=== PATIENT | female | born 1980 | race Caucasian/White ===

== ENCOUNTER 2022-04-02 06:54 | Outpatient (CLI) | payer OTHER, BC, SELFPAY ==
[2022-04-02 07:33] LABS: Anion Gap 6 mmol/L (8-16); Blood Urea Nitrogen 13 mg/dL (7-17); Carbon Dioxide 27 mmol/L (22-30); Chloride 107 mmol/L (98-107); Cholesterol 213 mg/dL (0-200); Estimated Glomerular Filt Rate > 60; Glucose 86 mg/dL (65-110); HDL Direct 57 mg/dL; Sodium 140 mmol/L (137-145); Triglycerides 148 mg/dL (<150)
[2022-04-02 07:43] LABS: Basophils Absolute Auto 0.1 K/mm3 (0.0-0.1); Basophils Percent Auto 1.1 % (0.2-1.2); Eosinophils Absolute Auto 0.5 K/mm3 (0-0.3); Eosinophils Percent Auto 8.4 % (0-4.4); Hematocrit 40.9 % (37.0-47.0); Hemoglobin 13.5 g/dL (12.0-15.0); Immature Granulocyte Absolute 0.01 K/mm3 (0.00-0.031); Immature Granulocyte Percent A 0.2 % (0-0.5); Lymphocytes Absolute Auto 1.43 K/mm3 (0.9-3.2); Lymphocytes Percent Auto 23.5 % (18.3-44.2); Mean Corpuscular Volume 96.9 fl (80-100); Mean Platelet Volume 9.8 fl (7.4-10.4); Monocytes Absolute Auto 0.8 K/mm3 (0.1-0.6); Monocytes Percent Auto 13.3 % (2.6-8.5); Neutrophils Absolute Auto 3.3 K/mm3 (1.3-6.7); Neutrophils Percent Auto 53.5 % (45.5-73.1); Platelet Count Result 219 k/mm3 (150-375); Red Blood Count 4.22 M/mm3 (4.2-5.4); Red Cell Distribution Width 12.3 % (11.5-14.5); White Blood Count 6.1 K/mm3 (4.5-10.0)
[2022-04-02 07:44] LABS: LDL Cholesterol Direct 112 mg/dL
[2022-04-02 08:15] LABS: Thyroid Stimulating Hormone Reflex 0.717 uIU/mL (0.465-4.68)
== END 2022-04-02 06:55 | disposition home or self-care (01) ==
PROVIDERS: PCP Family Medicine; Visit Provider Family Medicine
DX: Z13.29 Encounter for screening for other suspected endocrine disorder (principal); Z13.0 Encounter for screening for diseases of the blood and blood-forming organs and certain disorders involving the immune mechanism; Z13.1 Encounter for screening for diabetes mellitus; Z13.220 Encounter for screening for lipoid disorders
CPT/HCPCS: 36415; 80048; 80061; 84436; 84443; 85025

== ENCOUNTER 2022-08-17 14:52 | Outpatient (CLI) | payer OTHER, BC, SELFPAY | END 2022-08-17 14:53 | disposition home or self-care (01) | PROVIDERS: PCP Family Medicine; Visit Provider Obstetrics & Gynecology | DX: C50.919 Malignant neoplasm of unspecified site of unspecified female breast (principal); Z01.818 Encounter for other preprocedural examination | CPT/HCPCS: 36415; 86850; 86900; 86901 ==

== ENCOUNTER 2022-08-29 00:54 | Day surgery (SDC) | payer OTHER, BC, SELFPAY ==
--- NOTE | 2022-08-16 14:46 | SUR.PREOP ---
Report to the Outpatient Waiting Room, entrance under the green pavilion located off [facility], at time 1000 on date 08/29/22. Planned Procedure Time: 1200. Time changes happen often and if your time is changed the preop area will call you the afternoon before. - You and your visitor will be asked to self-screen and do not enter if you have any COVID symptoms. - Only one visitor is requested with a max of two and NO children visitors are allowed at this time. - The patient visitor may be requested to leave or wait in car when not with patient due to distancing restrictions. - A mask is optional within the hospital at this time. Patients may have clear liquids (water, carbonated beverages, clear teas, apple juice) until 3 hours prior to surgery with a maximum of 20 ounces. - No food from midnight until time of surgery - Infants may have breast milk until 4 hours before surgery, infant formula 6 hours prior to surgery. - Children will be allowed to drink immediately following surgery. If applicable, please bring a bottle or sippy cup to assist with drinking. Juice, water, soda, and popsicles are readily available. For infants on formula, please bring formula the day of surgery. Pacifiers are allowed. Take the following medications with a SIP of water the morning of surgery: NONE DO NOT STOP ANY OF YOUR OTHER PRESCRIPTION MEDICATIONS PRIOR TO SURGERY ?EXCEPT THE FOLLOWING Medications to discontinue per physician MULTIVITAMIN Date to take last dose 08/26/22 Please no make-up, nail arabic, hairspray, perfume, deodorant, or body powder the day of surgery. No jewelry (including any body piercings) or valuables the day of surgery, leave them at home. Please take a shower or bath the night before, or the morning of, surgery with an antibacterial soap. Wear comfortable, loose fitting clothing. Children are encouraged to wear pajamas. - Jewelry must be removed prior to entering the operating room. Rings and piercings that are not removed may be cut off. - The hospital will not accept responsibility for valuables. - Please leave all valuables, including medications, at home the day of surgery. If you are going home after surgery, a licensed pile driver must drive you home. - NO public transportation without another adult if you receive anesthesia. - We recommend that an adult stay with you for 24 hours following discharge. - We also recommend that you do not drive, make important decision, drink alcoholic beverages, or take any drugs that were not prescribed by your health care provider for at least 24 hours after your discharge time. For Pediatric surgeries, we recommend two adults accompany the child home. Follow any additional instructions given to you from your surgeon. If you or anyone in your household have experienced Covid symptoms in the past week, please notify your surgeon or the nurse liaison at the phone number below for possible testing. Telephone instructions given to ARTIE BORGES and asked if any additional questions and then verbalized understanding. Patient advised to call surgeon office or pre surgery nurse liaison [phone] if any additional questions.
[2022-08-16 15:10] VITALS: BMI 24.3
[2022-08-29] VITALS (14 sets, daily range): BP systolic 75–129; BP diastolic 49–99; PULSE 59–81; RESP 10–18; TEMP 37.1; O2SAT 100
--- NOTE | 2022-08-29 00:13 | PM.IMHP ---
H&P: HPI History of Present Illness Date/Time: 08/29/22 00:13 Chief Complaint: Here to have ovaries removed. Narrative: 42 y/o with a new diagnosis of grade 1, stage 1A invasive ductal carcinoma of the right breast. It is ER+/VA+/HER-. She gonzalez shad bilateral mastectomies with lymph node samplings. Lymph nodes were negative. She has been offered gonadoptropin suppression therapy vs. oophorectomy. She is BRCA negative. After a long discussion, she is interested in surgical management. Review of Systems Review of Systems: All systems reviewed & are unremarkable except as noted in HPI and below PMFSH Past Medical History Medical History Breast cancer Surgical History Surgical History History of bilateral mastectomy History of delivery History of reconstruction of both breasts Family History Family History Other Breast cancer Hypertension Social History Social History Smoking status: Never smoker Substance use: never Living arrangements: with family Spiritual care concerns: No Meds Home Medications and Allergies Home Medications Medication Instructions Recorded Confirmed Type cetirizine 10 mg tablet (Zyrtec) 10 mg PO DAILY 08/16/22 08/16/22 History fluticasone propionate 50 1 spray intranasal DAILY 08/16/22 08/16/22 History mcg/actuation nasal spray,suspension multivitamin 1 tablet PO DAILY 08/16/22 08/16/22 History olopatadine 0.2 % eye drops 1 drp EACH EYE DAILY 08/16/22 08/16/22 History anastrozole 1 mg tablet 1 mg PO DAILY 08/17/22 08/17/22 History Allergies Allergy/AdvReac Type Severity Reaction Status Date / Time No Known Allergies Allergy Unknown Unverified 08/16/22 14:53 Exam Const: Orientation/consciousness: patient oriented x3 Other: Well-developed, well-nourished female in no acute distress. Neck: Thyroid: thyroid normal Lymphatic: no lymphadenopathy noted (in neck, axilla or inguinal nodes) Resp: Effort & Inspection: normal respiratory effort Auscultation: clear to auscultation bilaterally Cardio: Rate: regular rate Rhythm: regular rhythm Heart sounds: S1 normal heart sound present and S2 normal heart sound present GI: Other: ABD: Soft, nontender, nondistended. No guarding or rebound tenderness. No hepatosplenomegaly. : General: Yes no CVA tenderness Other: External genitalia: normal female hair distribution, without lesion. Urethral meatus: no lesion, non prolapsed. Bladder: no mass, nontender Vagina: well-estrogenized, without lesion or discharge. No cystocele or rectocele. Cervix: no lesion or discharge. Uterus: small, anteverted, freely mobile, nontender Adnexa: no mass or tenderness. Anus/perineum: no lesions, nontender Back/Spine/Pelvis: Back: no CVA tenderness Skin: General skin exam: normal color and no rashes or lesions noted Neuro: General: patient oriented x3 Extrem: Other: Extremities: nontender with no edema Psych: Mental Status: mental status grossly normal Affect: normal affect Assessment and Plan Assessment and plan (1) Breast cancer: Code(s): C50.919 - Malignant neoplasm of unspecified site of unspecified female breast Status: Chronic Assessment and Plan: A: Invasive ductal carcinoma of the right breast, ER+/VA+. Ovarian suppression vs. removal suggested. P: We reviewed medical vs. surgical approaches, with risks and benefits. Specifically, I have offered laparoscopic bilateral salpingo-oophorectomies. She understands risks of surgery to include risks of anesthesia, risks of pain, infection, bleeding, blood products, thromboembolic phenomena and damage to adjacent structures such as bowel, bladder, ureters, blood vessels and nerves. She understands she may experie
[2022-08-29] MEDS: LACTATED RINGERS 1,000 ML 30 ML IV CONT (10:35)
[2022-08-29] MEDS: KETOROLAC 15 MG/ML VIAL (*BKC) IV PUSH (10:39)
[2022-08-29] MEDS: ACETAMINOPHEN 500 MG TABLET 1000 MG PO (10:39)
--- NOTE | 2022-08-29 11:09 | P.PNAN_ITS ---
Anes - Initial Pre Proc Eval Procedure: Operation Date: 08/29/22 12:00 Proposed Procedures p Laparoscopic Bilateral Salpingo-oophorectomy - Antoine Meyers MD Date/Time: 08/29/22 11:09 Surgeon: Antoine Meyers MD Pre Op Diagnosis: Hx of Breast Cancer Patient Data Age: 42 Gender: F Height: 1.68 m Weight: 68.2 kg Last Vital Signs Temp 37.1 C 08/29/22 10:15 Pulse 68 08/29/22 10:15 Resp 18 08/29/22 10:15 BP 129/79 08/29/22 10:15 Pulse Ox 100 08/29/22 10:15 O2 Del Method Room Air 08/29/22 10:15 Allergies Allergy/AdvReac Type Severity Reaction Status Date / Time No Known Allergies Allergy Unknown Unverified 08/29/22 10:49 Home Medications Medication Instructions Recorded Confirmed Type cetirizine 10 mg tablet (Zyrtec) 10 mg PO DAILY 08/16/22 08/29/22 History fluticasone propionate 50 1 spray intranasal DAILY 08/16/22 08/29/22 History mcg/actuation nasal spray,suspension multivitamin 1 tablet PO DAILY 08/16/22 08/29/22 History olopatadine 0.2 % eye drops 1 drp EACH EYE DAILY 08/16/22 08/29/22 History anastrozole 1 mg tablet 1 mg PO DAILY 08/17/22 08/29/22 History Patient hx anesthesia problems: none Family hx anesthesia problems: none Results Review: All pre-operative results and documents have been reviewed as part of the pre- operative evaluation. [facility] Past Medical History Medical History Breast cancer Surgical History Surgical History History of bilateral mastectomy History of delivery History of reconstruction of both breasts Family History Family History Other Breast cancer Hypertension Social History Social History Smoking status: Never smoker Substance use: never Living arrangements: with family Spiritual care concerns: No Anes - Eval Final PreProcedure Day of Procedure 08/29/22 11:09 Patient weight: normal Heart: regular rate and rhythm Lungs: clear to auscultation Airway: Mallampati scale class II Neurological: alert and oriented Last oral intake: >/= 8 hours ASA classification: III Emergent: no Anesthetic plan: proceed Anesthesia type and monitoring: general ETT and standard monitoring Results Review: All pre-operative results and documents have been reviewed as part of the pre- operative evaluation. Informed Consent: The patient's anesthetic plan and its attendant risks and benefits were discussed with the patient/family/POA. Questions were solicited and answers provided to the satisfaction of the patient/family/POA.
--- NOTE | 2022-08-29 12:25 | WPDHPUPDATE1 ---
History and Physical Update Update Date/Time: 08/29/22 12:25 History and Physical has been reviewed, including an updated exam of the patient. There are NO changes in the patient's condition. Risks, benefits, and alternatives have been discussed and questions answered. Patient agrees to proceed with procedure.
--- NOTE | 2022-08-29 14:09 | P.OP_ITS ---
Procedure Note - Detailed Date of Procedure 08/29/22 Pre-op Diagnosis Hx of Breast Cancer Post-op Diagnosis Same Procedure Performed Laparoscopic bilateral salpingooophorectomy Surgeon Antoine Meyers MD Anesthesia General Findings There was a small, simple-appearing cyst on left ovary. A second small cyst nancy eared to be associated with the left Fallopian tube. Right tube and ovary unremarkable. 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 Filmy adhesions between the omentum and the anterior abominal wall. Liver, gallbladder, vermiform appendix all normal- appearing. Anterior and posterior cul-de-sac normal-appearing. Bilateral round and uterosacral ligaments unremarkable. Bilateral uterers seen. Description of Procedure The patient was taken to the operating room where general endotracheal anesthesia was administered. She was prepared and draped in the usual sterile fashion in the dorsal lithotomy position. The bladder was drained with a red rubber catheter. A sterile speculum was inserted into the vagina and the anterior lip of the cervix was grasped with a single-toothed tenaculum. The acorn uterine manipulator was placed. The speculum was withdrawn. Gloves were changed and attention was turned to the abdomen. An infraumbilical skin incision was made with a scalpel. The abdomen was tented and a 5 millimeter bladeless trocar trocar was advanced under direct laparoscopic visualization. Pneumoperitoneum was administered using carbon dioxide gas. A survey of the pelvis and abdomen yielded the findings noted above. An 11 mm port was placed in the left lower quadrant, and another 5 mm port in the right lower quadrant, both using bladeless trocars under direct laparoscopic visualization. The filmy adhesions between the omentum and the anterior abdominal wall were gently, bluntly lysed. The ureters were visualized bilaterally. The right adnexa was elevated and the Ligasure was used to ligate and transect the infundibulopelvic ligament, followed by the uteroovarian ligament. The left adnexa was similarly excised. An endobag was advanced and the specimens were withdrawn. The pelvis was irrigated with warmed normal saline, and the pedicles were hemostatic. The Domingo cone was used to reapproximate the fascial incision in the left lower quadrant using a single interrupted suture of 0-vicryl. The trocars were withdrawn and the gas was allowed to escape. The skin incisions were reapproximated using 4-0 Vicryl in interrupted subcuticular fashion. Dermaflex was applied externally. The vaginal instrumentation was withdrawn and hemostasis was excellent here as well. Sponge, lap, needle and instrument counts were correct. The patient was awakened and taken to recovery in stable condition. I was present and scrubbed through the entire procedure. Implants None Estimated Blood Loss 5 Drains No Packing No Pathology Yes (Bilateral Fallopian tubes and ovaries sent to pathology.) Complications None Condition Stable Disposition PACU
[2022-08-29] MEDS: oxyCODONE HCL (*CRX) 5 MG TAB IR PO (15:56)
--- NOTE | 2022-08-29 17:30 | SUR.PHASEII ---
1645- Attempted to review discharge instructions with patient. Patient attempted to stand and take a few steps around the room. Once patient sat back down in recliner patient felt very clammy and woozy. BP taken in EMR. 1720- Orthostatic vital signs taken and stable. Patient feeling better. Ambulated around outpatient surgery room without issue. Dr. Meyers notified of previous episode of low BP and feeling near syncopal. Dr. Meyers stated it was okay to discharge patient at this time. 1730- Patient dressed without difficulty or feeling near syncopal. IV removed. Discharge instructions reviewed with patient and .
== END 2022-08-29 17:50 | disposition home or self-care (01) ==
PROVIDERS: PCP Family Medicine; Visit Provider Obstetrics & Gynecology
PROC: (CPT 49320; principal; 2022-08-29 12:00)
DX: Z40.02 Encounter for prophylactic removal of ovary(s) (principal); D25.2 Subserosal leiomyoma of uterus; N73.6 Female pelvic peritoneal adhesions (postinfective); N83.8 Other noninflammatory disorders of ovary, fallopian tube and broad ligament; N83.202 Unspecified ovarian cyst, left side; Z85.3 Personal history of malignant neoplasm of breast; Z90.13 Acquired absence of bilateral breasts and nipples; Z79.811 Long term (current) use of aromatase inhibitors
CPT/HCPCS: 58661; 36415; 86850; 86900; 86901; 88305; A9270; J0330; J1100; J1885; J2250; J2405; J2704; J3010; J7120

== ENCOUNTER 2024-11-18 06:52 | Outpatient (CLI) | payer OTHER, SELFPAY ==
--- OUTSIDE RECORDS SUMMARY | 2024-11-18 06:56 | XMS_ITS | Encounter Summary ---
Author Organization [facility] Care Team Providers Care Tool And Die Technician Name Role Phone Nayan Alvarenga MD Primary Care Provid er Unknown, Notinfile Primary Care Provider Unavail able Nayan Alvarenga MD Primary Care Provid er Unknown, Notinfile Primary Care Provider Unavail able Unknown, Notinfile Primary Care Provider Unavail able Nayan Alvarenga MD Primary Care Provid er Encounter Details Date Type Department Care Team (Latest Contact Info) Description 09/26/2015 Orders Only [facility] ProviderTonya MD [address] [place] [id number] Social History Tobacco Use Types Packs/Day Years Used Date Smoking Tobacco: Never Comments Unknown Sex and Gender Information Value Date Recorded Sex Assigned at Not on file Legal Sex Female 7:27 AM VETERINARIAN POULTRY Gender Identity Not on file Sexual Orientation Not on file documented as of this encounter Plan of Treatment Not on file documented as of this encounter Procedures Procedure Name Priority Date/Time Associated Diagnosis Comments SCAN - LABS 09/26/2015 12:00 AM VETERINARIAN POULTRY documented in this encounter Results * SCAN - LABS (09/26/2015 12:00 AM VETERINARIAN POULTRY) Narrative 09/26/2015 12:00 AM VETERINARIAN POULTRY Ordered by an unspecified provider. Historical Provider Final Res ult documented in this encounter Visit Diagnoses Not on filedocumented in this encounter Care Teams Tool And Die Technician Relationship Specialty Start Date End Date Nayan Alvarenga MD [address] [place] [address] PCP - General 08/15/17 09/01/17 Unknown, Notinfile PCP - General 09/02/17 09/11/17 Nayan Alvarenga MD [address] [place] [address] PCP - General 09/12/17 09/17/17 Unknown, Notinfile PCP - General 09/18/17 09/18/17 Unknown, Notinfile PCP - General 09/19/17 10/06/17 Nayan Alvarenga MD [address] [place] [address] PCP - General 10/07/17 documented as of this encounter
--- OUTSIDE RECORDS SUMMARY | 2024-11-18 06:56 | XMS_ITS | Clinical Summary ---
Author Organization [facility] [place] Address [address] [place] [address] Phone Care Team Providers Care Medical Driver Name Role Phone Nayan Alvarenga MD Primary Care Provider [phone] Allergies No known active allergies Medications INTRAUTERINE DEVICE, IUD, INTRAUTERINEInd ications:Family history of breast cancer by Intrauterine route. mirena Active Active Problems Patient Care Coordination No te Formatting of this note migh t be different from the original. Primary Care: Nayan Alvarenga MD Referring Provider: Antoine Meyers MD [address] [facility] [address] [place] [address] Other: Problem Noted Date Diagnosed Date Family history of breast cancer 12/19/2012 Family History Medical History Relation Name Comments Breast Cancer Maternal Grandmother Breast Cancer Mother passed at 30 Ovarian Cancer Paternal Aunt Relation Name Status Comments Maternal Grandmother Mother Paternal Aunt Social History Tobacco Use Types Packs/Day Years Used Date Smoking Tobacco: Never Smokeless Tobacco: Never Alcohol Use Standard Drinks/Week Comments Yes 0 (1 standard drink = 0.6 oz pur e alcohol) rare Comments No Sex and Gender Information Value Date Recorded Sex Assigned at Not on file Legal Sex Female 11:29 AM CDT Gender Identity Not on file Sexual Orientation Not on file Last Filed Vital Signs Vital Sign Reading Time Taken Comments Blood Pressure 108/71 02/26/2014 3:35 PM CDT Pulse 67 02/26/2014 3:35 PM CDT Temperature - - Respiratory Rate - - Oxygen Saturation - - Inhaled Oxygen Concentration - - Weight 59.4 kg (131 lb) 02/26/2014 3:35 PM CDT Height 167.6 cm (5' 6 ) 02/26/2014 3:35 PM CDT Body Mass Index 21.14 02/26/2014 3:35 PM CDT Plan of Treatment Health Maintenance Due Date Last Done Comments DTAP/TDAP/TD VACCINES (1 - Tdap) 01/02/2000 HEPATITIS B VACCINES (1 of 3 - 19+ 3-dose series) 01/02/2000 HPV/Cotest (21-29) 2002 CERVICAL CANCER SCREENING 2011 HPV/Cotest (30-65) 2011 PAP SMEAR 2011 BREAST CANCER SCREENING 2021 04/24/20 12, 03/02/2011, 07/24/2008 INFLUENZA VACCINE (#1) 2024 HPV VACCINES Aged Out No longer eligi ble based on patient's age to complete this topic Procedures Procedure Name Priority Date/Time Associated Diagnosis Comments MAMMO SCREEN BILAT W OR WO CAD Routine 04/24/2012 from Last 3 Months or Most Recently Relevant to Health Maintenance Results * MAMMO DIGITAL SCREEN BILAT (04/24/2012) Anatomical Region Laterality Modality Breast Bilateral Other us Antoine Meyers MD MAMMO ORDERABLES Final Result from Last 3 Months or Most Recently Relevant to Health Maintenance Insurance [employer] [facility] Care Teams Medical Driver Relationship Specialty Start Date End Date Nayan Alvarenga MD [address] [place] [id number] PCP - General Family Practice 12/19/12
--- OUTSIDE RECORDS SUMMARY | 2024-11-18 06:56 | XMS_ITS | Encounter Summary ---
Author Organization [facility] Address [address] [place] [address] Phone Care Team Providers Care Care Manager Cna Name Role Phone Nayan Alvarenga MD Primary Care Provid er Encounter Details Date Type Department Care Team (Late st Contact Info) Description 11/10/2024 Results Follow-Up [facility] [address] [place] [address] Moise Matos NP [address] [place] [address] Social History Tobacco Use Types Packs/Day Years Used Date Smoking Tobacco: Never Passive Smoke Exposure: Never Smokeless Tobacco: Never Alcohol Use Standard Drinks/Week Comments Yes 0 (1 standard drink = 0.6 oz pur e alcohol) once monthly AUDIT-C Answer Date Recorded Q1: How often do you have a drink containing alc ohol? 2-4 times a month 06/27/2023 Q2: How many drinks containi ng alcohol do you have on a typical day when you are drinking? 1 or 2 06/27/2023 Q3: How often do you have si x or more drinks on one occasion? Monthly 06/27/2023 PHQ-2 Answer Date Recorded PHQ-2 Total Score 0 05/12/2024 Personal Safety Answer Date Recorded Have you ever been in or are you currently in a harmful physical or emotional relationship or is someone making you feel afraid or unsafe? Denies 11/15/2022 Comments No Sex and Gender Information Value Date Recorded Sex Assigned at Not on file Legal Sex Female 7:27 AM ENVIRONMENTAL STUDIES PROGRAM DIRECTOR Gender Identity Not on file Sexual Orientation Not on file documented as of this encounter Plan of Treatment Not on file documented as of this encounter Visit Diagnoses Not on filedocumented in this encounter Care Teams Care Manager Cna Relationship Specialty Start Date End Date Nayan Alvarenga MD [address] [place] [address] PCP - General 10/07/17 documented as of this encounter
--- OUTSIDE RECORDS SUMMARY | 2024-11-18 06:56 | XMS_ITS | Clinical Summary ---
Author Organization [facility] Address [address] [place] [address] Care Team Providers Care Fisher Mussel Name Role Phone Unavailable Primary Care Provider Unavailabl e Source Comments [facility],non-owned Affiliates and Associated Physician Practices is amultiple site organization consisting of ambulatory clinics and hospital sitesin [place], [place], [place] and [place]. This disclosure is being madepursuant to the Care Everywhere program and may not contain all information available regarding this patient. Last updated 18.[facility] Immunizations Immunization Administration Dates Next Due COVID MODERNA 12+ yr 50mcg/0.5mL 05/09/2024 INFLUENZA VACCINE, TRIV. (FL UZONE; FLULAVAL; FLUARIX; AFLURIA TRIVALENT; 6MO+), 0.5 ML (IIV3) 05/09/2024 Social History Tobacco Use Types Packs/Day Years Used Date Smoking Tobacco: Never Assessed Comments Unknown Sex and Gender Information Value Date Recorded Sex Assigned at Not on file Legal Sex Female 6:32 AM DIRECT MARKETING ANALYST Gender Identity Not on file Sexual Orientation Not on file Plan of Treatment Health Maintenance Due Date Last Done Comments LIPID TESTING 1981 PAP SMEAR 1981 HIV SCREENING 01/02/1996 HEPATITIS C SCREENING 12/28/1998 DTAP/TDAP/TD VACCINES (1 - Tdap) 01/02/2000 HEPATITIS B VACCINE (1 of 3 - 19+ 3-dose series) 01/02/2000 MAMMOGRAM 09/18/2023 09/18/2021, 08/23, 09/12/2020, Additional history exists DEPRESSION SCREENING 07/22/2024 ZOSTER VACCINE (1 of 2) 2031 COVID-19 VACCINE Completed 05/09/2024, , 08/14/2020 INFLUENZA VACCINE Completed 05/09/2024, , 04/03/2022, Additional history exists HIB VACCINE Aged Out No longer eligi ble based on patient's age to complete this topic HPV VACCINE Aged Out No longer eligi ble based on patient's age to complete this topic MENINGOCOCCAL (Group B) VACCINE SHARED DECISION-MAKING Aged Out No longer eligible based on patient's age to complete this topic MENINGOCOCCAL GROUPS A/C/Y/W VACCINE Aged Out No longer eligible based on patient's age to complete this topic PNEUMOCOCCAL VACCINE Aged Out No long er eligible based on patient's age to complete this topic Insurance [facility]
--- OUTSIDE RECORDS SUMMARY | 2024-11-18 06:56 | XMS_ITS | Continuity of Care Document ---
Author Organization [facility] Address [address] [place] [address] Phone Care Team Providers Care Armament Aircraft Mechanic Name Role Phone Mateo PTHarman Unavailable Unavailable Procedures Procedure Date Therapeutic Activities Neuromuscular Re-Ed Therapeutic Exercise Therapeutic Activities Neuromuscular Re-Ed Therapeutic Exercise Therapeutic Activities Neuromuscular Re-Ed Therapeutic Exercise Therapeutic Activities Neuromuscular Re-Ed Therapeutic Exercise Therapeutic Activities Neuromuscular Re-Ed Therapeutic Exercise Therapeutic Activities Neuromuscular Re-Ed Therapeutic Exercise Therapeutic Activities Neuromuscular Re-Ed Therapeutic Exercise Therapeutic Activities Neuromuscular Re-Ed Therapeutic Exercise PT Evaluation Moderate Complexity Therapeutic Activities Neuromuscular Re-Ed Therapeutic Exercise Advance Directives Directive Yes / No Effective Date File Name No Information Encounters Encounter Description Practice Location Reason(s) For Visit Diagnoses Date Provider Providers Copied on Encounter [facility], [address], [place], [place], [id number], [place] tel:[phone] [place] No Information Mateo Huffyn. . Referring Provider: Nayan Alvarenga, [address] [place], [address]. tel:[phone] [place] [address], [id number], [place] tel:[phone] [place] No Information Mateo Harman. . Referring Provider: Nayan Alvarenga, [address] [place], [address]. tel:[phone] [place] [address], [id number], [place] tel:[phone] [place] No Information Mateo Harman. . Referring Provider: Nayan Alvarenga [address] [place] [address], [facility]. tel:[phone] [place] [address], [id number], [place] tel:[phone] [place] No Information Mateo Huffyn. . Referring Provider: Nayan Alvarenga [address] [place], [address]. tel:[phone] [place] [address] [place] [address], [id number], [place] tel:[phone] [place] No Information Mateo Huffyn. . Referring Provider: [place], [address]. tel:[phone] [place] [address], [id number], [place] tel:[phone] [place] No Information Mateo Huffyn. . Referring Provider: [place], [address]. tel:[phone] [place], [place] [id number] [address], [id number], tel:[phone] [facility] No Information Mateo Nguyen . Referring Provider: Nayan Alvarenga, [address] [place], [address]. tel:[phone] [facility], [address], [id number], tel:[phone] [facility] No Information Mateo Nguyen . Referring Provider: Nayan Alvarenga, [place], [address]. tel:[phone] [facility] [address], [id number], tel:[phone] [place] No Information Mateo Nguyen . Referring Provider: Nayan Alvarenga, [address] [place], [address]. tel:[phone] Family History Family Member Type Diagnosis Age At Onset No Information Payers Payer name Insurance type Covered democrat ID Ameya diaz(s) [facility] CI [id number] [facility] SHIRIN [id number] Social History Type Description Quantity Date Captured Comments Sex Female Smoking Status No Information Chief Complaint And Reason For Visit No Information Reason For Referral Reason For Referral No Information History Of Present Illness Encounter Date Complaint History Of Prese nt Illness No Information Functional Status Date Functional Assessmen t No Information Instructions Date Instruction Additional Infor mation No Information Assessments Type Assessment Date No Information Patient Care Teams Name Effective Dates (start - stop) Status Members No Information
--- OUTSIDE RECORDS SUMMARY | 2024-11-18 06:56 | XMS_ITS | Encounter Summary ---
Author Organization [facility] Address [address] [place] [address] Care Team Providers Care Lead Carpenter Name Role Phone Nayan Alvarenga MD Primary Care Provid er Encounter Details Date Type Department Care Team (Late st Contact Info) Description 03/04/[address] [facility] [address] [place] [address] Ruchi Dahl MD PhD [address] [facility] [phone] [place] [address] Social History Tobacco Use Types Packs/Day Years Used Date Smoking Tobacco: Never Smokeless Tobacco: Never Alcohol Use Standard Drinks/Week Comments Yes 0 (1 standard drink = 0.6 oz pur e alcohol) AUDIT-C Answer Date Recorded Frequency of Alcohol Consumption Monthly or less 12/10/2018 Average Number of Drinks Not on file 019 Frequency of Binge Drinking Not on file 11/20 PHQ-2 Answer Date Recorded PHQ-2 Score 0 12/16/2019 Comments No Sex and Gender Information Value Date Recorded Sex Assigned at Not on file 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
--- OUTSIDE RECORDS SUMMARY | 2024-11-18 06:56 | XMS_ITS | Clinical Summary ---
Author Organization [facility] Address [address] [place] [address] Care Team Providers Care Bolt Maker Name Role Phone Unavailable Primary Care Provider Unavailabl e Social History Tobacco Use Types Packs/Day Years Used Date Smoking Tobacco: Never Assessed Comments Unknown Sex and Gender Information Value Date Recorded Sex Assigned at Not on file Legal Sex Female 6:48 PM CDT Gender Identity Not on file Sexual Orientation Not on file Plan of Treatment Health Maintenance Due Date Last Done Comments Cervical Cancer Screening Pa p Smear (Age 30 to 64) Every 3 Years 1981 Annual Physical 01/02/1984 Hepatitis C 1999 DTaP, Tdap and Td Vaccines ( 1 - Tdap) 01/02/2000 Hepatitis B Vaccines (1 of 3 - 19+ 3-dose series) 01/02/2000 Cervical Cancer Screening Pa p with HPV Testing (Age 30 to 64) Every 5 Years 2011 Cervical Cancer Screening with HPV 2011 Mammogram Screening 2021 COVID-19 Vaccine (2023-2 5 season) 2024 HPV Vaccines Aged Out No longer eligi ble based on patient's age to complete this topic Meningococcal B Vaccine Aged Out No l onger eligible based on patient's age to complete this topic Meningococcal Vaccine Aged Out No sudha sadia eligible based on patient's age to complete this topic Pneumococcal Vaccine: Pediat rics (0 to 5 Years) and At-Risk Patients (6 to 49 Years) Aged Out No longer eligible b ased on patient's age to complete this topic RSV Immunizations Under 20 Months Aged Out No longer eligible based on patient's age to complete this topic
--- OUTSIDE RECORDS SUMMARY | 2024-11-18 06:56 | XMS_ITS | Referral Summary ---
Author Organization [facility] Address [address] [place] [phone] Care Team Providers Care Oncology Coordinator Name Role Phone Nayan Alvarenga MD Primary Care Provid er Encounters Date Type Department Care Team Description 11/10/2024 Results Follow-Up [facility] Oncology [address] [facility] Floor 6 [place] [address] Moise Matos NP 11/05/2024 8:10 AM CDT Clinical Support [address] [place] [address] Postmenopausal (Primary Dx); Malignant neoplasm of upper-outer quadrant of right breast in female, estrogen receptor positive (HCC); Aromatase inhibitor use 10/27/2024 Orders Only [address] [place] [address] [place] [address] Jazmin Prince, ARRT Malignant neoplasm of upper-outer quadrant of right breast in female, estrogen receptor positive (HCC) (Primary Dx); Aromatase inhibitor use 10/26/2024 Orders Only [facility] Oncology [address] [place] [address] Kirstin Brothesr, RN Malignant neoplasm of upper-outer quadrant of right breast in female, estrogen receptor positive (HCC) 08/26/2024 7:15 AM HEALTH SUPPORT SPECIALIST Lab [facility] - Lab Collection [address] [facility] Floor 5 [place] [address] Malignant neoplasm of upper-outer quadrant of right breast in female, estrogen receptor positive (HCC) 08/26/2024 7:00 AM HEALTH SUPPORT SPECIALIST Lab [facility] Oncology Lab [address] [place] [address] Floor 5 [place] [address] Malignant neoplasm of upper-outer quadrant of right breast in female, estrogen receptor positive (HCC) 08/26/2024 8:00 AM HEALTH SUPPORT SPECIALIST Office Visit [facility] Oncology [address] [place] [address] Floor 8 [place] [address] Caden Garcia MD Malignant neoplasm of upper-outer quadrant of right breast in female, estrogen receptor positive (HCC) (Primary Dx); Aromatase inhibitor use from Last 3 Months Allergies Active Allergy Reactions Criticality Noted Date Comments Clarithromycin Other (See comments) Low 12/10/2018 vaginal itching and swelling Medications fluticasone propionate (FLONASE) 50 mcg/actuation nasal sprayIndications:A llergic Rhinitis Administer 1 spray into each nostril every morning 2 09/01/19 19 Active olopatadine (PATADAY) 0.2 % ophthalmic solutionIndication s:Allergic Conjunctivitis Administer 1 drop into both eyes daily Active calcium carb/vit D3/minerals (CALCIUM-VITAMIN D ORAL)Indications:s upplement Take 1 tablet by mouth every morning Active vit C-s.hopkins-celery- grape sd [id number] mg capsule Take 2 Doses by mouth nightly 2 gummies Active loratadine (CLARITIN) 10 mg tablet Take 1 tablet (10 mg total) by mouth daily Active PARoxetine (PAXIL) 10 mg tablet Take 1 tablet (10 mg total) by mouth daily 06/20/20 23 Active exemestane (AROMASIN) 25 mg tabletIndications: Malignant neoplasm of upper-outer quadrant of right breast in female, estrogen receptor positive (HCC) Take 1 tablet (25 mg total) by mouth daily 90 tablet 3 10/27/19 25 Active exemestane (AROMASIN) 25 mg tabletIndications: Malignant neoplasm of upper-outer quadrant of right breast in female, estrogen receptor positive (HCC) TAKE 1 TABLET(25 MG) BY MOUTH DAILY AFTER A MEAL 30 tablet 3 09/22/19 025 Discontin ued(Dupli shelton order) Active Problems Problem Noted Date Diagnosed Date Absence of both breasts 10/09/2022 Overview (10/09/2022): Added automatically from request for surgery [id number] Atypical hyperplasia of right breast 06/11/2022 Breast atypical hyperplasia 06/08/2022 Malignant neoplasm of upper- outer quadrant of right breast in female, estrogen receptor positive 05/13/2022 Cancer Staging:Pathologic stage from 07/27/2022:Stage IA(pT1b, pN0, cM0, G1, ER+, VT+, HER2-, Oncotype DX score: 19) - Signed by Odin Wise MD on 07/27/2022 Nonrheumatic mitral valve regurgitation 09/15/19 Diastolic dysfunction 09/15/2020 Chest pain 06/27/2020 Lumbago with sciatica 06/07/2017 At risk of disease 12/23/2015 Fibrocystic breast changes 07/05/2015 Family history of breast cancer 12/19/2012 Immunizations Immunization Administration Dates Next Due Flucelvax Influenza Quad 04/27/2019 Influenza, Quadrivalent, Jocelyne l Culture-based MDCK, Preservative Free, Antibiotic Free, Intramuscular 04/27/2019 Influenza, Quadrivalent, Spl it, Preservative Free, Intramuscular 04/04/2023,04/03/2022,04/20/2020,05/13 Influenza, Trivalent, IM (MDV) 04/24/2021,2013 Influenza, Trivalent, Preser vative Free, Intramuscular 05/09/2024,05/02/2017,04/24/2016,05/11 Influenza, Unspecified 05/20/2021,04/27/2019 Pfizer SARS-CoV-2 Monovalent Vaccination (12+ Yrs) PURPLE 09/04/2020,08/14/2020 Sars-cov-2 Covid-19 Mrna, Bi valent, Original/omicron Ba.1 05/09/2024 Tdap 12/16/2019 Social History Tobacco Use Types Packs/Day Years Used Date Smoking Tobacco: Never Passive Smoke Exposure: Never Smokeless Tobacco: Never Tobacco Cessation:Counseling Given: Not Answered Alcohol Use Standard Drinks/Week Comments Yes 0 [...] on file Legal Sex Female 7:27 AM HEALTH SUPPORT SPECIALIST Gender Identity Not on file Sexual Orientation Not on file Last Filed Vital Signs Vital Sign Reading Time Taken Comments Blood Pressure 133/91 08/26/2024 7:54 AM HEALTH SUPPORT SPECIALIST Pulse 72 08/26/2024 7:54 AM HEALTH SUPPORT SPECIALIST Temperature 37 C (98.6 F) 06/27/2024 11:43 AM HEALTH SUPPORT SPECIALIST Respiratory Rate 18 08/26/2024 7:54 AM HEALTH SUPPORT SPECIALIST Oxygen Saturation 99% 08/26/2024 7:54 AM HEALTH SUPPORT SPECIALIST Inhaled Oxygen Concentration - - Weight 74.4 kg (164 lb) 08/26/2024 7:54 AM HEALTH SUPPORT SPECIALIST Height 165.1 cm (5' 5 ) 07/02/2024 3:46 PM HEALTH SUPPORT SPECIALIST Body Mass Index 27.29 07/02/2024 3:46 PM HEALTH SUPPORT SPECIALIST Plan of Treatment Not on file Medical Devices Implanted Type Area Laboratory Clerk Device Identifier Shelf Expiration Date Model / Serial / Lot [employer] Natrelle Inspira Smooth Shell Cohesive Gel 1 Lumen Patch Extra Srx-545 - [id number] - [id number] Implanted:Qty: 1 on 11/15/2022 by Antoine Gomez MD at [facility] Breast Right: Breast [employer] [id number] 03/12/2027 SRX-545 / [id number] / [employer] Natrelle Inspira Smooth Shell Cohesive Gel 1 Lumen Patch Extra Srx-545 - [id number] - [id number] Implanted:Qty: 1 on 11/15/2022 by Antoine Gomez MD at [facility] Breast Left: Breast [employer] [id number] 10/06/2026 SRX-545 / [id number] / [employer] Ultraclip Bard 17ga 10cm 2 Trigger Permanent Ultrasound [id number] - [id number] Implanted:Qty: 1 on 04/30/2022 at [facility] [employer] [id number] / / [employer] Magtrace Liquid Marker 10 Vial Carton [id number] - [id number] Implanted:Qty: 1 on 06/08/2022 by Ruchi Dahl MD PhD at [facility] Right: Breast [employer] 02/18/2024 [id number] / / Explanted Type Area Laboratory Clerk Device Identifier Shelf Expiration Date Model / Serial / Lot Mirena Iud-02/16/2019 Implanted: (Quantity not on file) N/A: Uterus Berlex Lab [employer] Implant Mammary Natrelle Te Smooth 054d-At-18-T With Fourte [id number]-Sa-39-T - [id number] - [id number] Implanted:Qty : 1 on 06/08/2022 by Antoine Gomez MD at [facility] Explanted:Qty : 1 on 11/15/2022 at [facility] Left: Chest [employer] [id number] 10/06/2026 133S-FX-1 2-T / [id number] / [employer] Implant Mammary Natrelle Te Smooth 359a-Bp-45-T With Fourte [id number]-Li-24-T - [id number] - [id number] Implanted:Qty : 1 on 06/08/2022 by Antoine Gomez MD at [facility] Explanted:Qty : 1 on 11/15/2022 at [facility] Right: Chest [employer] [id number] 07/03/2026 133S-FX-1 2-T / [id number] / Procedures Procedure Name Priority Date/Time Associated Diagnosis Comments DEXA TBS AXIAL SKELETON BONE DENSITY 1 OR MORE SITES Schedule Routine, Read Routine (OP Routine) 11/05/2024 8:17 AM CDT Malignant neoplasm of upper-outer quadrant of right breast in female, estrogen receptor positive (HCC) Aromatase inhibitor use EGFR Routine 08/26/2024 7:07 AM HEALTH SUPPORT SPECIALIST Malignant neoplasm of upper-outer quadrant of right breast in female, estrogen receptor positive (HCC) DIFFERENTIAL AUTO Routine 08/26/2024 7:0 7 AM HEALTH SUPPORT SPECIALIST Malignant neoplasm of upper-outer quadrant of right breast in female, estrogen receptor positive (HCC) CBC WITH AUTO DIFFERENTIAL Routine 08/26/2024 7:07 AM HEALTH SUPPORT SPECIALIST Malignant neoplasm of upper-outer quadrant of right breast in female, estrogen receptor positive (HCC) COMPREHENSIVE METABOLIC PANEL Routine 08/26/2024 7:07 AM HEALTH SUPPORT SPECIALIST Malignant neoplasm of upper-outer quadrant of right breast in female, estrogen receptor positive (HCC) HM PAP SMEAR WITH HPV Routine 04/09/2023 SCREENING MAMMOGRAM BILATERAL W MAX Schedule Routine, Read Routine (OP Routine) 09/18/2021 10:23 AM HEALTH SUPPORT SPECIALIST Family history of breast cancer from Last 3 Months or Most Recently Relevant to Health Maintenance Results * Dexa TBS Axial Skeleton Bone Density 1 or more sites (11/05/2024 8:17 AM CDT) Anatomical Region Laterality Modality Wrist, Body N/A Radiographic Tresa ging Narrative 11/06/2024 8:29 AM CDT Patient Name: Rubi Borges Date of : 1980 Date of scan: 11/05/2024 Bone mineral density was performed on a [employer] Discovery Densitometer. Based on machine cross-calibration and precision studies the least significant changes of this densitometer is 0.024 g/cm2 at the spine, 0.020 g/cm2 at the total proximal femur, and 0.014g/cm2 at the forearm. HISTORY: This is a 44 y.o. postmenopausal female with a history of breast cancer. She reports that she has never smoked. She has never been exposed to tobacco smoke. She has never used smokeless tobacco. Currently on treatment with calcium, vitamin D, and aromatase inhibitor, previously treated with androgen deprivation therapy, and current complaint of back pain and neck pain. INDICATIONS: Menopause status, treatment monitoring, and aromatase inhibitor therapy. FINDINGS: BONE MINERAL DENSITY OF THE LUMBAR SPINE Bone Mineral Density (BMD) of the lumbar spine was measured from L1-L4 and the average density was calculated to be 1.141 gm/cm2. This corresponds to a T-score (standard deviations from the mean of young adults) of 0.9. When compared to the previous study of 10/26/2022 there has been a -0.146 gm/cm (-11.3%) decrease in bone density that is considered significant. BONE MINERAL DENSITY OF THE PROXIMAL FEMUR Bone Mineral Density (BMD) of the left hip total was found to be 1.051 gm/cm2. This corresponds to a T-score standard deviations from the mean of young adults of 0.9. Femoral neck is 0.914 gm/cm2 with a T-score (standard deviations from the mean of young adults) of 0.6. When compared to the previous study of 10/26/2022 there has been a -0.088 gm/cm (-7.7%) decrease in bone density that is considered significant. SUMMARY: Bone mineral density is near the young adult normal mean with no increased risk for fracture. There has been a significant decrease in bone density since previous measurement. The lumbar spine Trabecular Bone Score is 1.527 which suggests normal bone microarchitecture, compared to the general population. Final decisions regarding diagnostic or therapeutic recommendations should include BMD, TBS, additional clinical risk factors as well the clinical context of the patient. Please see attached TBS results for further details. ADDITIONAL COMMENTS: Postmenopausal Women and Men Over 50: Diagnostic criteria: Osteoporosis: BMD at or below -2.5 T-score; Osteopenia (low bone mass): BMD between -1.0 and -2.5 T-score. If the patient has a history of a fragility fracture, a fracture that occurred with trauma equivalent to a fall from a standing position or less, then the diagnosis is osteoporosis regardless of bone density. The history and data sections of the bone mineral density scan were prepared by Kirstin Robles)(Bea)(JOSELIN) CBDT who is accredited by the International Society of Clinical Densitometry. The overall patient assessment and scan interpretation were performed by Susan Carmichael M.D. who is certified by the International Society of Clinical Densitometry. [id number] us Caden Garcia MD IMG DXA PROCEDURE S Final Result * eGFR (08/26/2024 7:07 AM HEALTH SUPPORT SPECIALIST) eGFR 82 >=60 mL/min/1. 73 m2 Comment: Interpretive Data Reference Interval Normal >/= 90 mL/min/1.73m2 Mildly decreased* 60 - 89 mL/min/1.73m2 Mildly to moderately decreased 45 - 59 mL/min/1.73m2 Moderately to severely decreased 30 - 44 mL/min/1.73m2 Severely decreased 15 - 29 mL/min/1.73m2 Kidney Failure < 15 mL/min/1.73m2 *Relative to young adult level Estimated glomerular filtration rate is determined by the 2020 CKD-EPI equation recommended by the National Kidney Foundation (A Unifying Approach to GFR Estimation: Recommendations of the NKF-ASK Task Force on Reassessing the Inclusion of Race in Diagnosing Kidney Disease, JASN 2020). The CKD-EPI equation should not be used for patients with unstable renal function and has not been validated in children and those over 70. Current interpretive data was last reviewed 2021. Blood 08/26/2024 7:07 AM HEALTH SUPPORT SPECIALIST 08/26/2024 7:14 AM HEALTH SUPPORT SPECIALIST us Caden Garcia MD LAB BLOOD ORDERAB LES Final Result [facility] Department [place] [address] * Differential, auto (08/26/2024 7:07 AM HEALTH SUPPORT SPECIALIST) Neutrophil abs 1.9 1.5 - 6.5 K/cumm Comment:Testing performed by : [facility], [address] [place] [phone] Lymphocyte abs 1.3 0.8 - 3.3 K/cumm [facility] Comment:Testing performed by : [facility], [address] [place] [phone] Monocyte abs 0.6 0.2 - 0.8 K/cumm [facility] Comment:Testing performed by : [facility], [address] [place], [place] [id number] Eosinophil abs 0.4 0.0 - 0.5 K/cumm [facility] Comment:Testing performed by : [facility], [address] [place] [address] Basophil abs 0.0 0.0 - 0.1 K/cumm [facility] Comment:Testing performed by : [facility], [address] [place] [address] Neutrophil pct 44.4 % [facility] Comment: Interpretive Data Percent cell count reference ranges are not reported, since discordance with absolute values may lead to misinterpretation of CBC data. Current Interpretive Data was last revised on 2017. Testing performed by: [facility], [address] [place] [phone] Lymphocyte pct 29.9 % [facility] Comment: Interpretive Data Percent cell count reference ranges are not reported, since discordance with absolute values may lead to misinterpretation of CBC data. Current Interpretive Data was last revised on 2017. Testing performed by: [facility], [address] [place] [phone] Monocyte pct 14.6 % [facility] Comment: Interpretive Data Percent cell count reference ranges are not reported, since discordance with absolute values may lead to misinterpretation of CBC data. Current Interpretive Data was last revised on 2017. Testing performed by: [facility], [address] [place] [phone] Eosinophil pct 10.1 % [facility] Comment: Interpretive Data Percent cell count reference ranges are not reported, since discordance with absolute values may lead to misinterpretation of CBC data. Current Interpretive Data was last revised on 2017. Testing performed by: [facility], [address] [place] [address] Basophil pct 1.0 % [facility] Comment: Interpretive Data Percent cell count reference ranges are not reported, since discordance with absolute values may lead to misinterpretation of CBC data. Current Interpretive Data was last revised on 2017. Testing performed by: [facility], [address] [place] [address] Blood 08/26/2024 7:07 AM HEALTH SUPPORT SPECIALIST 08/26/2024 7:11 AM HEALTH SUPPORT SPECIALIST us Caden Garcia MD LAB BLOOD ORDERAB LES Final Result [facility] Department [place] [address] * CBC with auto differential (08/26/2024 7:07 AM HEALTH SUPPORT SPECIALIST) WBC 4.3 3.8 - 9.9 K/cumm Comment:Testing performed by : [facility], [address] [place] [address] Hgb 13.8 11.9 - 15.5 g/dL [facility] Comment:Testing performed by : [facility], [address] [place] [address] Hct 41.0 35.6 - 45.5 % [facility] Comment:Testing performed by : [facility], [address] [place] [address] Plt 260 150 - 400 K/cumm [facility] Comment:Testing performed by : [facility], [address] [place] [address] MPV 7.6 6.8 - 10.4 fL [facility] Comment:Testing performed by : [facility], [address] [place] [address] RBC 4.46 3.90 - 5.20 M/cumm [facility] Comment:Testing performed by : [facility], [address] [place], [place] [phone] MCV 92.0 81.3 - 96.4 fL [facility] Comment:Testing performed by : [facility], [address] [place], [place] [phone] MCH 31.0 27.1 - 33.3 pg [facility] Comment:Testing performed by : [facility], [address] [place], [place] [phone] MCHC 33.7 32.3 - 35.7 g/dL [facility] Comment:Testing performed by : [facility], [address] [place], [place] [phone] RDW CV 12.8 11.1 - 14.9 % [facility] Comment:Testing performed by : [facility], [address] [place], [place] [phone] NRBC abs 0.00 0.00 - 0.01 K/cumm [facility] Comment:Testing performed by : [facility], [address] [place], [place] [phone] Blood 08/26/2024 7:07 AM HEALTH SUPPORT SPECIALIST 08/26/2024 7:11 AM HEALTH SUPPORT SPECIALIST us Caden Garcia MD LAB BLOOD ORDERAB LES Final Result [facility] Department [place] [address] * Comprehensive metabolic panel (08/26/2024 7:07 AM HEALTH SUPPORT SPECIALIST) Sodium 141 135 - 145 mmol/L Potassium, pl 4.2 3.3 - 4.9 mmol/L [facility] Chloride 104 97 - 110 mmol/L [facility] CO2 32 22 - 32 mmol/L [facility] Anion gap 5 2 - 15 mmol/L [facility] BUN 19 6 - 25 mg/dL [facility] Creatinine 0.89 0.60 - 1.10 mg/dL [facility] Glucose 71 70 - 199 mg/dL [facility] Comment: Interpretive Data Fasting glucose >/= 126 mg/dl is diagnostic for diabetes. Fasting is defined as no caloric intake for at least 8 hours. Fasting glucose between 100 mg/dl to 125 mg/dl is diagnostic of prediabetes. In a patient with classic symptoms of hyperglycemia or hyperglycemic crisis, a random glucose >/= 200 mg/dl is diagnostic for diabetes. In the absence of unequivocal hyperglycemia, results should be confirmed by repeat testing. The classification and Diagnosis of Diabetes Diabetes Care 202; 46: S19-S40. Current interpretive data was last revised 2022. Calcium 9.8 8.5 - 10.3 mg/dL [facility] Bilirubin, total 0.5 0.1 - 1.2 mg/dL [facility] Protein, pl 7.2 6.5 - 8.5 g/dL [facility] Albumin 4.3 3.5 - 5.0 g/dL [facility] Alk phos 66 40 - 130 Units/L [facility] ALT 17 7 - 45 Units/L [facility] AST 23 10 - 45 Units/L [facility] Blood 08/26/2024 7:07 AM HEALTH SUPPORT SPECIALIST 08/26/2024 7:14 AM HEALTH SUPPORT SPECIALIST Caden Garcia MD LAB BLOOD ORDERAB LES Final Result [facility] Department [place] [address] * HM PAP SMEAR WITH HPV (04/09/2023) Scribed Pap Smear w/HPV Normal us Historical Provider HEALTH MAINTENANCE Final Result * Screening Mammogram Bilateral W Max (09/18/2021 10:23 AM HEALTH SUPPORT SPECIALIST) Anatomical Region Laterality Modality Breast Bilateral Mammography Narrative 09/18/2021 2:57 PM HEALTH SUPPORT SPECIALIST Mammogram Technique: Bilateral Digital Breast Tomosynthesis, Bilateral C-view 2D Screening mammogram. Views obtained: bilateral craniocaudal and bilateral mediolateral oblique. Computer Aided Detection was performed. Mammogram Findings: The present examination has been compared to prior imaging studies performed at [facility] on 09/01/2018, 09/07/2019 and 09/12/2020. The breasts are heterogeneously dense, which may obscure small masses. There is no suspicious abnormality in either breast. Impression: There is no mammographic evidence of malignancy. Annual screening mammography is recommended. OVERALL FINAL ASSESSMENT: BI-RADS CATEGORY 1: Negative. Procedure Note Debora Thorne MD - 09/18/2021 Mammogram Technique: Bilateral Digital Breast Tomosynthesis, Bilateral C-view 2D Screening mammogram. Views obtained: bilateral craniocaudal and bilateral mediolateral oblique. Computer Aided Detection was performed. Mammogram Findings: The present examination has been compared to prior imaging studies performed at [facility] on 09/01/2018, 09/07/2019 and 09/12/2020. The breasts are heterogeneously dense, which may obscure small masses. There is no suspicious abnormality in either breast. Impression: There is no mammographic evidence of malignancy. Annual screening mammography is recommended. OVERALL FINAL ASSESSMENT: BI-RADS CATEGORY 1: Negative. Ruchi Dahl MD PhD IMG MAMMO PROCEDURES Final Result from Last 3 Months or Most Recently Relevant to [place] [address] [facility] CHOICE [employer]US [facility] HMO/PPO Address: [facility] [address] [place] [address] GENERIC COPAY ASSIST [facility] [id number] [facility] CHOICE [employer]US [facility] HMO/PPO Address: [address] [address] [place] [address] [facility] CHOICE [employer]US [facility] HMO/PPO Address: [address] [address] [place] [address] [facility] [address] Advance Directives For more information, please contact: [phone] * Full Code (Latest Code Status on File) Date Activated Date Inactivated Comments 06/08/2022 3:57 PM 06/09/2022 12:16 AM Care Teams Oncology Coordinator Relationship Specialty Start Date End Date Nayan Alvarenga MD [facility] [address] [place] [address] PCP - General 10/07/17
--- OUTSIDE RECORDS SUMMARY | 2024-11-18 06:56 | XMS_ITS | Clinical Summary ---
Author Organization [facility] Address [address] [place] [id number] Care Team Providers Care Digital Account Director Name Role Phone Nayan Alvarenga MD Primary Care Provid er Allergies Active Allergy Reactions Criticality Noted Date [...] every morning Active vit C-s.hopkins-celery- grape sd [id number] mg capsule Take 2 Doses by mouth [...] total) by mouth daily 90 tablet 3 04/07/20 25 Active exemestane (AROMASIN) 25 mg tabletIndications: Malignant neoplasm of upper-outer quadrant of right breast in female, estrogen receptor positive (HCC) TAKE 1 TABLET(25 MG) BY MOUTH DAILY AFTER A MEAL 30 tablet 3 09/22/19 25 025 Discontin ued(Erickli shelton order) Active Problems Problem Noted Date Diagnosed Date Absence of both breasts 10/09/2022 Overview (10/09/2022): Added automatically from request for surgery [id number] Atypical hyperplasia of right breast 06/11/2022 Breast atypical hyperplasia 06/08/2022 Malignant neoplasm of upper- outer quadrant of right breast in female, estrogen receptor positive 05/13/2022 Cancer Staging:Pathologic stage from 07/27/2022:Stage IA(pT1b, pN0, cM0, G1, ER+, AR+, HER2-, Oncotype DX score: 19) - Signed by Odin Wise MD on 07/27/2022 Nonrheumatic mitral valve regurgitation 09/15/19 21 Diastolic dysfunction 09/15/2020 Chest pain 06/27/2020 Lumbago with sciatica 06/07/2017 At risk of disease 12/23/2015 Fibrocystic breast changes 07/05/2015 Family history of breast cancer 12/19/2012 Encounters Date Type Department Care Team Description 11/10/2024 Results Follow-Up [facility] [address] [facility] Floor 6 [place] [address] Moise Matos NP 11/05/2024 8:10 AM CDT Clinical Support [place] [id number] [facility] Advanced Medicine 5th [place] [address] [place] [address] Postmenopausal (Primary Dx); Malignant neoplasm of upper-outer quadrant of right breast in female, estrogen receptor positive (HCC); Aromatase inhibitor use 10/27/2024 Orders Only [place] [id number] [facility] Medicine 5th [place] [address] [place] [address] Jazmin Prince, ARRT Malignant neoplasm of upper-outer quadrant of right breast in female, estrogen receptor positive (HCC) (Primary Dx); Aromatase inhibitor use 10/26/2024 Orders Only [facility] [address] [place] [address] Kirstin Brothers RN Malignant neoplasm of upper-outer quadrant of right breast in female, estrogen receptor positive (HCC) 08/26/2024 8:00 AM SHIPYARD PAINTER HELPER Office Visit [facility] [address] [facility] Floor 8 [place] [id number] Caden Garcia MD Malignant neoplasm of upper-outer quadrant of right breast in female, estrogen receptor positive (HCC) (Primary Dx); Aromatase inhibitor use 08/26/2024 7:15 AM SHIPYARD PAINTER HELPER Lab [facility] [place] - Lab Collection [address] [facility] Floor 5 [place] [address] Malignant neoplasm of upper-outer quadrant of right breast in female, estrogen receptor positive (HCC) 08/26/2024 7:00 AM SHIPYARD PAINTER HELPER Lab [facility] Lab [facility] Floor 5 [place] [address] Malignant neoplasm of upper-outer quadrant of right breast in female, estrogen receptor positive (HCC) from Last 3 Months Immunizations Immunization Administration Dates Next Due Flucelvax Influenza Quad 04/27/2019 Influenza, Quadrivalent, Jocelyne l Culture-based MDCK, Preservative Free, Antibiotic Free, Intramuscular 04/27/2019 Influenza, Quadrivalent, Spl it, Preservative Free, Intramuscular 04/04/2023,04/03/2022,04/20/2020,05/13 Influenza, Trivalent, IM (MDV) 04/24/2021,2013 Influenza, Trivalent, Preser vative Free, Intramuscular 05/09/2024,05/02/2017,04/24/2016,05/11 Influenza, Unspecified 05/20/2021,04/27/2019 Pfizer SARS-CoV-2 Monovalent Vaccination (12+ Yrs) PURPLE 09/04/2020,08/14/2020 Sars-cov-2 Covid-19 Mrna, Bi valent, Original/licoicron Ba.1 05/09/2024 Tdap 12/16/2019 Surgical History Surgery Date Site/Laterality Comments SECTION 07/22/2006 - 07/21/2007 2010 BREAST BIOPSY 02/27/2019 Right BREAST BIOPSY 04/30/2022 Right LAPAROSCOPIC TUBAL LIGATION 08/29/2022 tubes and ovaries removed BREAST SURGERY 06/08/2022 Bilateral BILATERAL SKIN AND NIPPLE SPARING MASTECTOMY Medical History Medical History Date Comments Breast cancer (HCC) Motion sickness Shortness of breath Chest pain PONV (postoperative nausea and vomiting) Controlled with IV medication Family History Medical History Relation Name Comments Cancer Maternal Grandmother Breast cancer Mother Adenocarcinoma of breast - (Added by TW Conv) Hypertension Sister Anesthesia problems Neg Hx Relation Name Status Comments Maternal Grandmother Mother Sister Social History Tobacco Use Types Packs/Day Years [...] on file Legal Sex Female 7:27 AM SHIPYARD PAINTER HELPER Gender Identity Not on file Sexual Orientation Not on file Obstetrics History Last Filed Vital Signs Vital Sign Reading Time Taken Comments Blood Pressure 133/91 08/26/2024 7:54 AM SHIPYARD PAINTER HELPER Pulse 72 08/26/2024 7:54 AM SHIPYARD PAINTER HELPER Temperature 37 C (98.6 F) 06/27/2024 11:43 AM SHIPYARD PAINTER HELPER Respiratory Rate 18 08/26/2024 7:54 AM SHIPYARD PAINTER HELPER Oxygen Saturation 99% 08/26/2024 7:54 AM SHIPYARD PAINTER HELPER Inhaled Oxygen Concentration - - Weight 74.4 kg (164 lb) 08/26/2024 7:54 AM SHIPYARD PAINTER HELPER Height 165.1 cm (5' 5 ) 07/02/2024 3:46 PM SHIPYARD PAINTER HELPER Body Mass Index 27.29 07/02/2024 3:46 PM SHIPYARD PAINTER HELPER Plan of Treatment Health Maintenance Due Date Last Done Comments Hepatitis C Screening 1981 Hepatitis B Screening 1999 Pneumococcal vaccine <65 (1 of 2 - PCV) 01/02/2000 Zoster Vaccine (1 of 2) 01/02/2000 Regular Well Visit/Exam 18-64 04/04/2024 04/04/2023, 04/03/2022, 04/03/2022, Additional history exists Breast Cancer Screening-Mammogram 05/12/2024 09/18/2021, 09/12/2020, 09/07/2019, Additional history exists Covid-19 Vaccine ( season) 2024 05/09/2024, 08/09/2021, 09/04/2020, Additional history exists Depression Screening 05/12/2025 05/12/2024, 04/04/2023, 04/04/2023, Additional history exists DTaP/Tdap/Td Vaccine (2 - Td or Tdap) 12/15/2029 12/16/2019 Cervical Cancer Screening Discontinued 04/09/2023, 08/2018 Influenza Vaccine Completed 05/09/2024, , 04/03/2022, Additional history exists HPV Vaccines Aged Out No longer eligi ble based on patient's age to complete this topic Varicella Vaccines Discontinued Medical Devices Implanted Type Area Tent Assembler Device Identifier Shelf Expiration Date Model / Serial / Lot [employer] Natrelle Inspira Smooth Shell Cohesive Gel 1 Lumen Patch Extra Srx-545 - [id number] - [id number] Implanted:Qty: 1 on 11/15/2022 by Antoine Gomez MD at [facility] Breast Right: Breast [employer] [id number] 03/12/2027 SRX-545 / [id number] / [employer] Natrelle Inspira Smooth Shell Cohesive Gel 1 Lumen Patch Extra Srx-545 - [id number] - [id number] Implanted:Qty: 1 on 11/15/2022 by Antoine Gomez MD at [facility] Medicine Breast Left: Breast [employer] [id number] 10/06/2026 SRX-545 / [id number] / Bard [employer] Ultraclip Bard 17ga 10cm 2 Trigger Permanent Ultrasound [id number] - [id number] Implanted:Qty: 1 on 04/30/2022 at [facility] [employer] [id number] / / [employer] Magtrace Liquid Marker 10 Vial Carton [id number] - [id number] Implanted:Qty: 1 on 06/08/2022 by Ruchi Dahl MD PhD at [facility] Right: Breast [employer] 02/18/2024 [id number] / / Explanted Type Area Tent Assembler Device Identifier Shelf Expiration Date Model / Serial / Lot Mirena Iud-02/16/2019 Implanted: (Quantity not on file) N/A: Uterus Berlex Lab [employer] Implant Mammary Natrelle Te Smooth 118c-Ou-46-T With Fourte 026t-Xs-14-T - [id number] - [id number] Implanted:Qty : 1 on 06/08/2022 by Antoine Gomez MD at [facility] Explanted:Qty : 1 on 11/15/2022 at [facility] Left: Chest [employer] [id number] 10/06/2026 133S-FX-1 2-T / [id number] / [employer] Implant Mammary Natrelle Te Smooth 056j-Tr-46-T With Fourte [id number]-Vk-19-T - [id number] - [id number] Implanted:Qty : 1 on 06/08/2022 by Antoine Gomez MD at [facility] Explanted:Qty : 1 on 11/15/2022 at [facility] Medicine Right: Chest [employer] [id number] 07/03/2026 133S-FX-1 2-T / [id number] / Procedures Procedure Name Priority Date/Time Associated Diagnosis Comments DEXA TBS AXIAL SKELETON BONE DENSITY 1 OR MORE SITES Schedule Routine, Read Routine (OP Routine) 11/05/2024 8:17 AM CDT Malignant neoplasm of upper-outer quadrant of right breast in female, estrogen receptor positive (HCC) Aromatase inhibitor use EGFR Routine 08/26/2024 7:07 AM SHIPYARD PAINTER HELPER Malignant neoplasm of upper-outer quadrant of right breast in female, estrogen receptor positive (HCC) DIFFERENTIAL AUTO Routine 08/26/2024 7:0 7 AM SHIPYARD PAINTER HELPER Malignant neoplasm of upper-outer quadrant of right breast in female, estrogen receptor positive (HCC) CBC WITH AUTO DIFFERENTIAL Routine 08/26/2024 7:07 AM SHIPYARD PAINTER HELPER Malignant neoplasm of upper-outer quadrant of right breast in female, estrogen receptor positive (HCC) COMPREHENSIVE METABOLIC PANEL Routine 08/26/2024 7:07 AM SHIPYARD PAINTER HELPER Malignant neoplasm of upper-outer quadrant of right breast in female, estrogen receptor positive (HCC) HM PAP SMEAR WITH HPV Routine 04/09/2023 SCREENING MAMMOGRAM BILATERAL W MAX Schedule Routine, Read Routine (OP Routine) 09/18/2021 10:23 AM SHIPYARD PAINTER HELPER Family history of breast cancer from Last [...] Bone mineral density was performed on a [employer] Iron Discovery Densitometer. Based on machine cross-calibration and [...] density scan were prepared by Kirstin Robles)(Bea)(JOSELIN) CBDZacarias who is accredited by the International Society of Clinical Densitometry. The overall patient assessment and scan interpretation were performed by Susan Carmichael M.D. who is certified by the International Society of Clinical Densitometry. [id number] Caden Garcia MD IMG DXA PROCEDURE S Final Result * eGFR (08/26/2024 7:07 AM SHIPYARD PAINTER HELPER) eGFR 82 >=60 mL/min/1. 73 m2 Comment: [...] last reviewed 2021. Blood 08/26/2024 7:07 AM SHIPYARD PAINTER HELPER 08/26/2024 7:14 AM SHIPYARD PAINTER HELPER Caden Garcia MD LAB BLOOD ORDERAB LES Final Result Performing Organization Address City/State/[facility] Co de Phone Number [facility] Department [place] [address] * Differential, auto (08/26/2024 7:07 AM SHIPYARD PAINTER HELPER) Neutrophil abs 1.9 1.5 - 6.5 K/cumm Comment:Testing performed by : [facility], [address] [place] [phone] Lymphocyte abs 1.3 0.8 - 3.3 K/cumm [facility] Comment:Testing performed by : [facility], [address] [place] [address] Monocyte abs 0.6 0.2 - 0.8 K/cumm [facility] Comment:Testing performed by : [facility], [address] [place] [phone] Eosinophil abs 0.4 0.0 - 0.5 K/cumm [facility] Comment:Testing performed by : [facility], [address] [place] [phone] Basophil abs 0.0 0.0 - 0.1 K/cumm [facility] Comment:Testing performed by : [facility], [address] [place] [phone] Neutrophil pct 44.4 % [facility] Comment: Interpretive Data Percent cell count reference ranges are not reported, since discordance with absolute values may lead to misinterpretation of CBC data. Current Interpretive Data was last revised on 2017. Testing performed by: [facility], [address] [place] [phone] Lymphocyte pct 29.9 % [facility] Comment: Interpretive Data Percent cell count reference ranges are not reported, since discordance with absolute values may lead to misinterpretation of CBC data. Current Interpretive Data was last revised on 2017. Testing performed by: [facility], [address] [place] [phone] Monocyte pct 14.6 % [facility] Comment: Interpretive Data Percent cell count reference ranges are not reported, since discordance with absolute values may lead to misinterpretation of CBC data. Current Interpretive Data was last revised on 2017. Testing performed by: [facility], [address] [place] [phone] Eosinophil pct 10.1 % [facility] Comment: Interpretive Data Percent cell count reference ranges are not reported, since discordance with absolute values may lead to misinterpretation of CBC data. Current Interpretive Data was last revised on 2017. Testing performed by: [facility], [address] [place] [phone] Basophil pct 1.0 % [facility] Comment: Interpretive Data Percent cell count reference ranges are not reported, since discordance with absolute values may lead to misinterpretation of CBC data. Current Interpretive Data was last revised on 2017. Testing performed by: [facility], [address] [place] [address] Blood 08/26/2024 7:07 AM SHIPYARD PAINTER HELPER 08/26/2024 7:11 AM SHIPYARD PAINTER HELPER Caden Garcia MD LAB BLOOD ORDERAB LES Final Result [facility] Department [place] [address] * CBC with auto differential (08/26/2024 7:07 AM SHIPYARD PAINTER HELPER) WBC 4.3 3.8 - 9.9 K/cumm Comment:Testing performed by : [facility], [address] [place] [address] Hgb 13.8 11.9 - 15.5 g/dL [facility] Comment:Testing performed by : [facility], [address] [place] [address] Hct 41.0 35.6 - 45.5 % [facility] Comment:Testing performed by : [facility], [address] [place] [address] Plt 260 150 - 400 K/cumm [facility] Comment:Testing performed by : [facility], [address] [place] [address] MPV 7.6 6.8 - 10.4 fL [facility] Comment:Testing performed by : [facility], [address] [place] [address] RBC 4.46 3.90 - 5.20 M/cumm [facility] Comment:Testing performed by : [facility], [address] [place] [address] MCV 92.0 81.3 - 96.4 fL [facility] Comment:Testing performed by : [facility], [address] [place] [address] [place] MCH 31.0 27.1 - 33.3 pg [facility] Comment:Testing performed by : [facility], [address] [place] [address] MCHC 33.7 32.3 - 35.7 g/dL [facility] Comment:Testing performed by : [facility], [address] [place] [address] RDW CV 12.8 11.1 - 14.9 % [facility] Comment:Testing performed by : [facility], [address] [place] [address] NRBC abs 0.00 0.00 - 0.01 K/cumm [facility] Comment:Testing performed by : [facility], [address] [place] [address] Blood 08/26/2024 7:07 AM SHIPYARD PAINTER HELPER 08/26/2024 7:11 AM SHIPYARD PAINTER HELPER Caden Garcia MD LAB BLOOD ORDERAB LES Final Result [facility] Department [place] [address] * Comprehensive metabolic panel (08/26/2024 7:07 AM SHIPYARD PAINTER HELPER) Sodium 141 135 - 145 mmol/L Potassium, pl 4.2 3.3 - 4.9 mmol/L [facility] Chloride 104 97 - 110 mmol/L [facility] CO2 32 22 - 32 mmol/L [facility] Anion gap 5 2 - 15 mmol/L [facility] BUN 19 6 - 25 mg/dL [facility] Creatinine 0.89 0.60 - 1.10 mg/dL [facility] Glucose 71 70 - 199 mg/dL [facility] Comment: Interpretive Data Fasting glucose >/= [...] classification and Diagnosis of Diabetes Diabetes Care 2021; 46: S19-S40. Current interpretive data was last revised 2022. Calcium 9.8 8.5 - 10.3 mg/dL [facility] Bilirubin, total 0.5 0.1 - 1.2 mg/dL [facility] Protein, pl 7.2 6.5 - 8.5 g/dL [facility] Albumin 4.3 3.5 - 5.0 g/dL [facility] Alk phos 66 40 - 130 Units/L [facility] ALT 17 7 - 45 Units/L [facility] AST 23 10 - 45 Units/L [facility] Blood 08/26/2024 7:07 AM SHIPYARD PAINTER HELPER 08/26/2024 7:14 AM SHIPYARD PAINTER HELPER Caden Garcia MD LAB BLOOD ORDERAB LES Final Result [facility] [place] [address] * HM PAP SMEAR WITH HPV (04/09/2023) Scribed Pap Smear w/HPV Normal Historical Provider HEALTH MAINTENANCE Final Result * Screening Mammogram Bilateral W Max (09/18/2021 10:23 AM SHIPYARD PAINTER HELPER) Anatomical Region Laterality Modality Breast Bilateral Mammography Narrative 09/18/2021 2:57 PM SHIPYARD PAINTER HELPER Mammogram Technique: Bilateral Digital Breast Tomosynthesis, Bilateral C-view 2D Screening mammogram. Views obtained: bilateral craniocaudal and bilateral mediolateral oblique. Computer Aided Detection was performed. Mammogram Findings: The present examination has been compared to prior imaging studies performed at [facility] on 09/01/2018, 09/07/2019 and 09/12/2020. [...] compared to prior imaging studies performed at [facility] on 09/01/2018, 09/07/2019 and 09/12/2020. [...] Most Recently Relevant to Health [place] [address] [facility] CHOICE PLUS [facility] HMO/PPO Address: [facility] [address] [place] [address] GENERIC COPAY ASSIST FORMERLY [facility] [id number] [facility] CHOICE PLUS [facility] HMO/PPO Address: [address] [address] [place] [address] [facility] CHOICE PLUS [facility] H[facility]/PPO Address: [facility] [address] [place] [address] FOR[facility] [address] Advance Directives For more information, please contact: [phone] * Full Code (Latest Code Status on File) Date Activated Date Inactivated Comments 06/08/2022 3:57 PM 06/09/2022 12:16 AM Care Teams Digital Account Director Relationship Specialty Start Date End Date Nayan Alvarenga MD [address] [place] [address] PCP - General 10/07/17
--- OUTSIDE RECORDS SUMMARY | 2024-11-18 06:56 | XMS_ITS ---
Author Organization [facility] Address [address] [place] [phone] Care Team Providers Care Plant Custodian Name Role Phone Nayan Alvarenga MD Primary Care Provid er Active Problems Problem Noted Date Diagnosed Date Absence of both breasts 10/09/2022 Overview (10/09/2022): Added automatically from request for surgery [id number] Atypical hyperplasia of right breast 06/11/2022 Breast atypical hyperplasia 06/08/2022 Malignant neoplasm of upper- outer quadrant of right breast in female, estrogen receptor positive 05/13/2022 Cancer Staging:Pathologic stage from 07/27/2022:Stage IA(pT1b, pN0, cM0, G1, ER+, [place]+, HER2-, Oncotype DX score: 19) - Signed by Odin Wise MD on 07/27/2022 Nonrheumatic mitral valve regurgitation 09/15/19 21 Diastolic dysfunction 09/15/2020 Chest pain 06/27/2020 Lumbago with sciatica 06/07/2017 At risk of disease 12/23/2015 Fibrocystic breast changes 07/05/2015 Family history of breast cancer 12/19/2012 Current Treatment and Therapy Plans No current plan information found. Past Treatment and Therapy Plans Oncology Chemotherapy Treatment Plan Name Start Date Discontinue Date Treatment Medications Discontinue Reason Plan Provider Cycles Goserelin 28 Day Cycles - Breast 08/17/2022 10/02/2022 goserelin (ZOLADEX) Therapy Complete Caden Garcia MD 1 of 18 cycles started
[2024-11-18 07:52] LABS: Eosinophils Absolute Auto 0.3 K/mm3 (0-0.3); Eosinophils Percent Auto 8.1 % (0-4.4); Hematocrit 41.3 % (37.0-47.0); Hemoglobin 13.3 g/dL (12.0-15.0); Lymphocytes Absolute Auto 1.15 K/mm3 (0.9-3.2); Mean Corpuscular HGB Conc 32.2 g/dl (32-36); Mean Corpuscular Hemoglobin 30.6 pg (26-34); Mean Corpuscular Volume 94.9 fl (80-100); Mean Platelet Volume 9.5 fl (7.4-10.4); Monocytes Absolute Auto 0.5 K/mm3 (0.1-0.6); Monocytes Percent Auto 12.8 % (2.6-8.5); Neutrophils Absolute Auto 1.8 K/mm3 (1.3-6.7); Neutrophils Percent Auto 48.1 % (45.5-73.1); Platelet Count Result 215 k/mm3 (150-375); Red Blood Count 4.35 M/mm3 (4.2-5.4); Red Cell Distribution Width 12.3 % (11.5-14.5); White Blood Count 3.8 K/mm3 (4.5-10.0)
[2024-11-18 08:01] LABS: Alanine Aminotransferase 17 U/L (6-35); Albumin Level 4.5 g/dL (3.5-5.1); Alkaline Phosphatase 52 U/L (38-126); Anion Gap 7 mmol/L (4-12); Aspartate Amino Transferase 25 U/L (14-36); Bilirubin,Total 0.5 mg/dL (0.2-1.3); Blood Urea Nitrogen 16 mg/dL (7-17); Calcium 9.3 mg/dL (8.4-10.2); Carbon Dioxide 28 mmol/L (22-30); Chloride 108 mmol/L (98-107); Cholesterol 250 mg/dL (0-200); Estimated Glomerular Filt Rate > 60; Glucose 80 mg/dL (65-110); HDL Direct 56 mg/dL; Potassium 4.1 mmol/L (3.4-5.0); Sodium 143 mmol/L (137-145); Triglycerides 86 mg/dL (<150)
[2024-11-18 08:09] LABS: Bacteria Urine None Seen /hpf; Non Pathogenic Casts 0-2; Squamous Epithelial Cell Urine None Seen /hpf (Few); WBC Urine 0-5 /hpf (0-3)
[2024-11-18 08:12] LABS: LDL Cholesterol Direct 138 mg/dL
[2024-11-18 08:30] LABS: Cortisol Baseline 9.73 ug/dL
[2024-11-18 08:37] LABS: Iron 126 ug/dL (37-170)
[2024-11-18 08:45] LABS: Percent Iron Saturation 42 % (20-50)
[2024-11-18 08:54] LABS: Appearance Urine Clear (Clear); Color Urine Yellow (Yellow); Glucose Urine UA Negative (Negative); Ketones Urine Negative (Negative); Protein Urine Negative (Negative); Specific Grav Ur 1.025 (1.010-1.020)
[2024-11-18 08:55] LABS: Add Urine Microscopic? YES; Bilirubin Urine Negative (Negative); Blood Urine 1+ (Negative); Leukocyte Esterase Ur Negative (Negative); Nitrate Urine Negative (Negative); Urobilinogen Urine 0.2 mg/dL (0.2-1.0)
[2024-11-18 09:06] LABS: Folic Acid 10.1 ng/mL (2.76->20)
[2024-11-18 09:08] LABS: Vitamin D 25 Hydroxy 60.9 ng/mL
[2024-11-18 09:17] LABS: Hemoglobin A1C 5.3 % (<5.7)
[2024-11-18 09:18] LABS: Hepatitis C Virus Antibody Negative (Negative)
[2024-11-22 05:49] LABS: Vitamin B2 8.5 nmol/L (6.2-39.0)
[2024-11-22 11:18] LABS: Vitamin B1 22 nmol/L (8-30)
[2024-11-22 13:19] LABS: Vitamin B6 130.9 ng/mL (2.1-21.7)
== END 2024-11-18 06:53 | disposition home or self-care (01) ==
PROVIDERS: PCP Nurse Practitioner Family; Visit Provider Nurse Practitioner Family
DX: C50.911 Malignant neoplasm of unspecified site of right female breast (principal); T78.40XA Allergy, unspecified, initial encounter; F41.9 Anxiety disorder, unspecified; E66.3 Overweight; E56.9 Vitamin deficiency, unspecified; Z17.0 Estrogen receptor positive status [ER+]; R23.2 Flushing; R79.89 Other specified abnormal findings of blood chemistry; G93.32 Myalgic encephalomyelitis/chronic fatigue syndrome; Z00.00 Encounter for general adult medical examination without abnormal findings; Z11.59 Encounter for screening for other viral diseases; Z13.29 Encounter for screening for other suspected endocrine disorder; Z76.89 Persons encountering health services in other specified circumstances; Z80.8 Family history of malignant neoplasm of other organs or systems; E61.1 Iron deficiency
CPT/HCPCS: 36415; 80053; 80061; 81001; 82306; 82533; 82607; 82728; 82746; 83036; 83540; 83550; 84207; 84252; 84425; 84439; 84443; 85025; 86803